=== PATIENT | female | born 1955 | race Caucasian/White ===

== ENCOUNTER 2024-12-14 07:35 | Inpatient (IN) | payer OTHER, MEDICAID ==
[~2024-12-14] VITALS: Ht 167.6 cm; Wt 96.5 kg
--- NOTE | 2024-12-14 08:24 | ED.PDOC ---
SOB-HPI HPI Comments 69 y/o F, presents to the ED for CC of shortness of breath. Patient states, he has been experiencing shortness of breath [id number]. Upon arrival to Ed, patient's SPO2 91% on room air. Patient denies chest pain, fever, cough, nasal congestion, or sore throat. 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 Family History Family History: Unknown Social History Smoker: Non-Smoker Alcohol: Denies ETOH Use Drugs: Denies Drug Use Lives In: Home Constitutional: denies: chills, diaphoresis, fatigue, fever, malaise, sweats, weakness, others EENTM: denies: blurred vision, double vision, ear bleeding, ear discharge, ear drainage, ear pain, ear ringing, eye pain, eye redness, hearing loss, mouth pain, mouth swelling, nasal discharge, nose bleeding, nose congestion, nose pain, photophobia, tearing, throat pain, throat swelling, voice changes, others Respiratory: reports: shortness of breath; denies: cough, hemoptysis, ortho pnea, SOB at rest, SOB with excertion, stridor, wheezing, others Cardiovascular: denies: chest pain, dizzy spells, diaphoresis, Dyspnea on exertion, edema, irregular heart beat, left arm pain, lightheadedness, palpitations, PND, syncope, others Gastrointestinal: denies: abdomen distended, abdominal pain, blood streaked bowels, constipated, diarrhea, dysphagia, difficulty swallowing, hematemesis, melena, nausea, poor appetite, poor fluid intake, rectal bleeding, rectal pain, vomiting, others Genitourinary: denies: abnormal vagina bleeding, burning, dyspareunia, dysuria, flank pain, frequency, hematuria, incontinence, pain, , vagina discharge, urgency, others Neurological: denies: dizziness, fainting, headache, left sided numbness, left sided weakness, numbness, paresthesia, pre-existing deficit, right sided numbness, right sided weakness, seizure, speech problems, tingling, tremors, weakness, others Musculoskeletal: denies: back pain, gout, joint pain, joint swelling, muscle pain, muscle stiffness, neck pain, others Integumetry: denies: bruises, change in color, change in hair/nails, dryness, laceration, lesions, lumps, rash, wounds, others Allergic/Immunocompromised: denies: Difficulty Healing, Frequent Infections, Hives, Itching, others Hematologic/Lymphatic: denies: anemia, blood clots, easy bleeding, easy bruising, swollen glands, others Endocrine: denies: excessive hunger, excessive sweating, excessive thirst, excessive urination, flushing, intolerance to cold, intolerance to heat, unexplained weight gain, unexplained weight loss, others Psychiatric: denies: anxiety, bipolar disorder, depression, hopeless, panic disorder, schizophrenia, sleepless, suicidal, others All Other Systems: Reviewed and Negative Physical Exam General Appearance: No Apparent Distress, Normal HEENT: Normal ENT Inspection, Pharynx Normal Neck: Full Range of Motion, Non-Tender, Normal, Normal Inspection Respiratory: Chest Non-Tender, Lungs Clear, No Accessory Muscle Use, No Respiratory Distress, Normal Breath Sounds Cardiovascular: No Edema, No Murmur, No Gallop, Normal Peripheral Pulses, Regular Rate/Rhythm Breast Exam: Deferred Gastrointestinal: No Organomegaly, Non Tender, No Pulsatile Mass, Normal Bowel Sounds, Soft Genitalia: Deferred Pelvic: Deferred Rectal: Deferred Extremities: No calf tenderness, Normal capillary refill, Normal inspection, Normal range of motion, Non-tender, No pedal edema Musculoskeletal : Apperance: Normal Neurologic: Alert, No Motor Deficits, Normal Affect, Normal Mood, No Sensory Deficits Cerebellar Function: Normal Reflexes: Normal Skin: Dry, Normal Color, Warm Lymphatic: NOT DONE EKG EKG : Pulse Rate (adult): 73 [place]: Normal Cardiac Rhythm: NSR Block: None Hypertrophy: None ST: Normal Was a procedure done? Was a procedure done?: No Differential Dx Differential Diagnosis: Asthma, Bronchitis, Pneumonia, Sinusitis, Pharyngitis, URI X-Ray, Labs, Meds, VS Vital Signs Date Time Temp Pulse Resp B/P (MAP) Pulse Ox O2 Delivery O2 Flow Rate FiO2 12/14/24 14:00 69 14 116/70 (85) 94 12/14/24 13:00 84 13 113/64 (80) 92 12/14/24 12:00 70 13 121/59 (79) 92 12/14/24 11:16 71 20 124/65 (84) 93 12/14/24 10:00 70 20 130/72 (91) 95 12/14/24 09:00 69 19 140/64 (89) 93 12/14/24 08:54 73 12/14/24 08:20 98.0 73 15 144/79 (100) 96 98.0 12/14/24 08:20 Room Air* 0 21 12/14/24 08:12 98.3 80 20 120/84 (96) 91 98.3 12/14/24 08:11 73 Lab Test 12/14/24 11:32 12/14/24 09:30 12/14/24 08:31 Range/Units Troponin I High Sensitivity 4 4 4 </=34 ng/L White Blood Count 9.5 4.4-10.8 10^3/uL Red Blood Count 4.93 4.0-5.20 10^6/uL Hemoglobin 15.2 12.2-16.2 g/dL Hematocrit 44.8 36.0-46.0 % Mean Corpuscular Volume 91.0 80.0-100.0 fL Mean Corpuscular Hemoglobin 30.8 28.0-32.0 pg Mean Corpuscular Hemoglobin Concent 33.8 32.0-36.0 g/dL Red Cell Distribution Width 13.9 11.8-14.3 % Platelet Count 188 140-450 10^3/uL Mean Platelet Volume 8.9 6.9-10.8 fL Neutrophils (%) (Auto) 37.0-80.0 % Lymphocytes (%) (Auto) 10.0-50.0 % Monocytes (%) (Auto) 0.0-12.0 % Basophils (%) (Auto) 0.0-2.0 % Neutrophils # (Auto) 1.6-8.6 10 ^3/uL Lymphocytes # (Auto) 0.4-5.4 10 ^3/uL Monocytes # (Auto) 0-1.3 10 ^3/uL Differential Total Cells Counted 100.0 100 Neutrophils % (Manual) 46 37.0-80.0 Band Neutrophils % (Manual) 1 Lymphocytes % (Manual) 41 10.0-50.0 Monocytes % (Manual) 8 0-12 Eosinophils % (Manual) 4 0-7 Basophils % (Manual) 0 0.0-2.0 Metamyelocytes % (manual) 0 Myelocytes % (Manual) 0 Promyelocytes % (Manual) 0 Blast Cells % (Manual) 0 Reactive Lymphocytes 0 Platelet Estimate Adequate Red Blood Cell Morphology Normal D-Dimer, Quantitative 0.44 0.0-0.49 mg/L FEU Sodium Level 139 136-145 mmol/L Potassium Level 4.2 3.5-5.1 mmol/L Chloride Level 107 98-107 mmol/L Carbon Dioxide Level 23 20-31 mmol/L Anion Gap 9 5-15 Blood Urea Nitrogen 22 9-23 mg/dL Creatinine 0.75 0.550-1.02 mg/dL Glomerular Filtration Rate Calc 86 >90 mL/min BUN/Creatinine Ratio 29.3 H 10.0-20.0 Serum Glucose 112 H 74-106 mg/dL Calcium Level 9.8 8.7-10.4 mg/dL Total Bilirubin 0.4 0.2-1.0 mg/dL Aspartate Amino Transferase (AST) 55 H 13-40 U/L Alanine Aminotransferase (ALT) 63 H 7-40 U/L Alkaline Phosphatase 87 46-116 U/L B-Type Natriuretic Peptide 75.51 0-100 pg/mL Total Protein 6.9 5.7-8.2 g/dL Albumin 4.3 3.2-4.8 g/dL [place] [id number] Ph: [phone] DIAGNOSTIC IMAGING Diagnostic Imaging Report : [id number] Signed PATIENT: NASIM YORK ACCT: [id number] UNIT: [id number] : 1955 LOC: ER ROOM / BED: / AGE / SEX: 69 / F ADM STATUS: REG ER SERVICE 3 ORDERING PHYSICIAN: DARCI SANCHEZ MD PROCEDURE(s): CXRP - CHEST PORTABLE REASON: sob ORDER NUMBER(s): [id number], ACCESSION NUMBER(s): [id number] EXAM: XY CHEST PORTABLE Indication: sob Technique: Single frontal view of the chest was obtained Comparison: None FINDINGS: Lines and Tubes: None Lungs: A 3.3 cm round opacity in the lung. Pleura: No effusion. No pneumothorax. Cardiomediastinal contours: Mild cardiomegaly. Bones: No acute osseous abnormality. IMPRESSION: A 3.3 cm round opacity in the lung. Recommend further evaluation with CT chest. ATED BY: GWENDOLYN MELTON MD DICTATED DATE/TIME: 12/14/24914 SIGNED BY: GWENDOLYN MELTON MD SIGNED DATE/TIME: 12/14/24914 CC: X-Ray, Labs, Meds, VS Comment This 69-year-old female presents secondary to several week history of shortness of breath. She states she has been trying to follow up with her PCP but has been unable to. As such, she presented here. History showed a lung lesion. CT showed likely cancer with metastases. Upon further questioning, the patient endorses having a previous CT scan that she had a lung lesion. She became concerned as she was unable to get follow up care. Secondary to the patient's worsening dyspnea, metastatic cancer, and inability to obtain appropriate care, admit the patient for further workup management of her metastatic lung cancer. Time of 1ST Reevaluation: 09:00 Reevaluation 1ST: Unchanged Patient Education/Counseling: Diagnosis, Treatment Family Education/Counseling: No Family Present Departure 1 Departure Time of Disposition: 14:20 Impression: Primary Impression: Dyspnea Additional Impressions: Lung cancer Metastatic disease Disposition: ADMITTED INPATIENT Admit to: Med Surg Condition: Serious Critical Care Note Critical Care Time?: No Stability Stability form required: No Heart Score Heart Score: Heart Score Response (Comments) Value History N/A 0 EKG N/A 0 Age N/A 0 Risk Factors N/A 0 Troponin N/A 0 Total 0 I personally scribed for DARCI SANCHEZ MD ([email or web address]) on 12/14/24 at 08:24. Electronically submitted by Maria C Guerrero ([email or web address]). I personally scribed for DARCI SANCHEZ MD ([email or web address]) on 12/14/24 at 08:28. Electronically submitted by Maria C Guerrero ([email or web address]). I personally scribed for DARCI SANCHEZ MD ([facility] on 12/14/24 at 08:53. Electronically submitted by Maria C Guerrero ([email or web address]). I personally scribed for DARCI SANCHEZ MD ([facility] on 12/14/24 at 08:54. Electronically submitted by Maria C Guerrero ([email or web address]). I personally scribed for DARCI SANCHEZ MD ([email or web address]) on 12/14/24 at 08:55. Electronically submitted by Maria C Guerrero ([email or web address]). I personally scribed for DARCI SANCHEZ MD ([email or web address]) on 12/14/24 at 09:51. Electronically submitted by Maria C Guerrero ([email or web address]). DARCI SANCHEZ MD Dec 14, 2024 08:24
[2024-12-14 09:02] LABS: Hematocrit 44.8 % (36.0-46.0); Hemoglobin 15.2 g/dL (12.2-16.2); Mean Corpuscular Hemoglobin 30.8 pg (28.0-32.0); Mean Corpuscular Hgb Conc. 33.8 g/dL (32.0-36.0); Platelet Count (auto) 188 10^3/uL (140-450); Red Blood Cells 4.93 10^6/uL (4.0-5.20); Red Cell Distribution Width 13.9 % (11.8-14.3); White Blood Cell 9.5 10^3/uL (4.4-10.8)
[2024-12-14 09:04] LABS: Basophils % (manual) 0 (0.0-2.0); Blast Cells 0; Metamyelocytes % 0; Myelocytes % 0; Promyelocytes % 0; Reactive Lymphocytes 0
--- NOTE | 2024-12-14 09:17 | DVH ---
EXAM: XY CHEST PORTABLE Indication: sob Technique: Single frontal view of the chest was obtained Comparison: None FINDINGS: Lines and Tubes: None Lungs: A 3.3 cm round opacity in the lung. Pleura: No effusion. No pneumothorax. Cardiomediastinal contours: Mild cardiomegaly. Bones: No acute osseous abnormality. IMPRESSION: A 3.3 cm round opacity in the lung. Recommend further evaluation with CT chest.
[2024-12-14 09:21] LABS: Band Neutrophils % (manual) 1; Eosinophils % (manual) 4 (0-7); Lymphocytes % (manual) 41 (10.0-50.0); Monocytes % (manual) 8 (0-12); Platelet Estimate Adequate; RBC Morphology Normal
[2024-12-14 09:23] LABS: Albumin 4.3 g/dL (3.2-4.8); Alkaline Phosphatase 87 U/L (46-116); Anion Gap 9 (5-15); BUN/Creatinine Ratio 29.3 (10.0-20.0); Blood Urea Nitrogen 22 mg/dL (9-23); Calcium 9.8 mg/dL (8.7-10.4); Carbon Dioxide 23 mmol/L (20-31); Chloride 107 mmol/L (98-107); Potassium 4.2 mmol/L (3.5-5.1); Sodium 139 mmol/L (136-145); Total Protein 6.9 g/dL (5.7-8.2)
[2024-12-14 09:24] LABS: Bilirubin, Total 0.4 mg/dL (0.2-1.0)
[2024-12-14 09:33] LABS: Alanine Aminotransferase 63 U/L (7-40); Aspartate Aminotransferase 55 U/L (13-40); Glucose 112 mg/dL (74-106)
[2024-12-14] MEDS: IOHEXOL 300 MG/ML 100ML BOTTLE IJ ONE (10:56)
--- NOTE | 2024-12-14 11:48 | DVH ---
Procedure: CT CHEST WITH CONTRAST Reason for study/Clinical History: lung mass Comparison Study: Chest radiograph performed earlier same date. Exam Date: 12/14/2024 10:54 AM Radiation Dose Information: CT Dose: CTDI volume is 26.04 mGy. Dose-length product is 980.02 mGy*cm Contrast: Type of contrast: Omnipaque 300 Contrast inject: 80 mL Contrast wasted:0 TECHNIQUE: CT scan of the chest was performed with intravenous contrast from the base of the neck to the upper abdomen. Coronal and sagittal reformatted images are submitted. FINDINGS: Lower Neck: Visualized portions of the thyroid gland are unremarkable. Aorta and Vasculature:Ectatic thoracic aorta measuring 3.9 cm. No aortic dissection. Normal caliber main pulmonary artery. Pulmonary arteries otherwise not evaluated due to suboptimal enhancement seco ndary to the phase of imaging. Lymph Nodes: No enlarged intrathoracic lymph nodes. Mediastinum: Heart size is normal. Coronary artery calcifications. There is no pericardial effusion. The esophagus is unremarkable. Lungs: There is a lobular mass in the right upper lobe measuring 2.6 x 2.5 x 2.6 cm. There is a 4 x 3 mm solid nodule in the posterior left lower lobe (series 3, image 26). There is a 5 mm solid nodule in the posterior left lower lobe (series 3, image 42). Moderate centrilobular emphysema with bulla n oted. Central airways: Patent. Musculoskeletal: No acute osseous abnormality. Multilevel thoracic spondylosis. Upper abdomen: Limited portions of the upper abdomen are unremarkable. IMPRESSION: 1. 2.6 cm right upper lobe pulmonary nodule highly suspicious for primary pulmonary malignancy. Left lower lobe pulmonary nodule suspicious for metastatic nodules. PET-CT recommended for further evaluat ion. 2. No adenopathy. 3. Emphysema. 4. Coronary artery calcifications. All CT scans at this medical facility are performed using dose modulation techniques as appropriate t o a performed exam including the following: Automated exposure control was utilized; adjustment of th e MA and/or KV according to patient size; and use of iterative reconstruction technique.
--- NOTE | 2024-12-14 14:52 | DVHHP2 ---
Admitting Diagnosis: Shortness of breaths History of Present Illness 69 y/o F, presents to the ED for CC of shortness of breath. Patient states, he has been experiencing shortness of breath [id number]. Upon arrival to Ed, patient's SPO2 91% on room air. Patient denies chest pain, fever, cough, nasal congestion, or sore throat. 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 Family History Family History: Unknown Social History Smoker: Non-Smoker Alcohol: Denies ETOH Use Drugs: Denies Drug Use Lives In: Home Review of Systems Constitutional: denies: chills, diaphoresis, fatigue, fever, malaise, sweats, weakness, others EENTM: denies: blurred vision, double vision, ear bleeding, ear discharge, ear drainage, ear pain, ear ringing, eye pain, eye redness, hearing loss, mouth pain, mouth swelling, nasal discharge, nose bleeding, nose congestion, nose pain, photophobia, tearing, throat pain, throat swelling, voice changes, others Respiratory: reports: shortness of breath; denies: cough, hemoptysis, orthopnea, SOB at rest, SOB with excertion, stridor, wheezing, others Cardiovascular: denies: chest pain, dizzy spells, diaphoresis, Dyspnea on exertion, edema, irregular heart beat, left arm pain, lightheadedness, palpitations, PND, syncope, others Gastrointestinal: denies: abdomen distended, abdominal pain, blood streaked bowels, constipated, diarrhea, dysphagia, difficulty swallowing, hematemesis, melena, nausea, poor appetite, poor fluid intake, rectal bleeding, rectal pain, vomiting, others Genitourinary: denies: abnormal vagina bleeding, burning, dyspareunia, dysuria, flank pain, frequency, hematuria, incontinence, pain, , vagina discharge, urgency, others Neurological: denies: dizziness, fainting, headache, left sided numbness, left sided weakness, numbness, paresthesia, pre-existing deficit, right sided numbness, right sided weakness, seizure, speech problems, tingling, tremors, weakness, others Musculoskeletal: denies: back pain, gout, joint pain, joint swelling, muscle pain, muscle stiffness, neck pain, others Integumetry: denies: bruises, change in color, change in hair/nails, dryness, laceration, lesions, lumps, rash, wounds, others Allergic/Immunocompromised: denies: Difficulty Healing, Frequent Infections, Hives, Itching, others Hematologic/Lymphatic: denies: anemia, blood clots, easy bleeding, easy bruising, swollen glands, others Endocrine: denies: excessive hunger, excessive sweating, excessive thirst, excessive urination, flushing, intolerance to cold, intolerance to heat, une xplained weight gain, unexplained weight loss, others Psychiatric: denies: anxiety, bipolar disorder, depression, hopeless, panic disorder, schizophrenia, sleepless, suicidal, others All Other Systems: Reviewed and Negative Allergies: Coded Allergies: Sulfanilamide (Verified Allergy, Unknown, 02/27/16) Vital Signs Vital Signs Date Time Temp Pulse Resp B/P (MAP) Pulse Ox O2 Delivery O2 Flow Rate FiO2 12/14/24 14:00 69 14 116/70 (85) 94 12/14/24 08:20 98.0 98.0 12/14/24 08:20 Room Air* 0 21 Physical Exam Generally-69 years old woman, well nourished well developed. No apparent distress HEENT-atraumatic normocephalic Heart-regular rate and rhythm Lungs decreased breath sounds Abdomen soft nontender nondistended Musculoskeletal-no edema cyanosis Neuro-AO x3, no focal deficits Results Labs Test 12/14/24 11:32 12/14/24 08:31 Range/Units Troponin I High Sensitivity 4 </=34 ng/L White Blood Count 9.5 4.4-10.8 10^3/uL Red Blood Count 4.93 4.0-5.20 10^6/uL Hemoglobin 15.2 12.2-16.2 g/dL Hematocrit 44.8 36.0-46.0 % Mean Corpuscular Volume 91.0 80.0-100.0 fL Mean Corpuscular Hemoglobin 30.8 28.0-32.0 pg Mean Corpuscular Hemoglobin Concent 33.8 32.0-36.0 g/dL Red Cell Distribution Width 13.9 11.8-14.3 % Platelet Count 188 140-450 10^3/uL Mean Platelet Volume 8.9 6.9-10.8 fL Neutrophils (%) (Auto) 37.0-80.0 % Lymphocytes (%) (Auto) 10.0-50.0 % Monocytes (%) (Auto) 0.0-12.0 % Basophils (%) (Auto) 0.0-2.0 % Neutrophils # (Auto) 1.6-8.6 10 ^3/uL Lymphocytes # (Auto) 0.4-5.4 10 ^3/uL Monocytes # (Auto) 0-1.3 10 ^3/uL Differential Total Cells Counted 100.0 100 Neutrophils % (Manual) 46 37.0-80.0 Band Neutrophils % (Manual) 1 Lymphocytes % (Manual) 41 10.0-50.0 Monocytes % (Manual) 8 0-12 Eosinophils % (Manual) 4 0-7 Basophils % (Manual) 0 0.0-2.0 Metamyelocytes % (manual) 0 Myelocytes % (Manual) 0 Promyelocytes % (Manual) 0 Blast Cells % (Manual) 0 Reactive Lymphocytes 0 Platelet Estimate Adequate Red Blood Cell Morphology Normal D-Dimer, Quantitative 0.44 0.0-0.49 mg/L FEU Sodium Level 139 136-145 mmol/L Potassium Level 4.2 3.5-5.1 mmol/L Chloride Level 107 98-107 mmol/L Carbon Dioxide Level 23 20-31 mmol/L Anion Gap 9 5-15 Blood Urea Nitrogen 22 9-23 mg/dL Creatinine 0.75 0.550-1.02 mg/dL Glomerular Filtration Rate Calc 86 >90 mL/min BUN/Creatinine Ratio 29.3 H 10.0-20.0 Serum Glucose 112 H 74-106 mg/dL Calcium Level 9.8 8.7-10.4 mg/dL Total Bilirubin 0.4 0.2-1.0 mg/dL Aspartate Amino Transferase (AST) 55 H 13-40 U/L Alanine Aminotransferase (ALT) 63 H 7-40 U/L Alkaline Phosphatase 87 46-116 U/L B-Type Natriuretic Peptide 75.51 0-100 pg/mL Total Protein 6.9 5.7-8.2 g/dL Albumin 4.3 3.2-4.8 g/dL Primary Diagnosis Shortness of breaths due to primary lung cancer with the mets Plan CT chest shows Lovenox CT-guided IR biopsy order NPO midnight IV fluids in a.m. INR within normal limits SCD for DVT prophylaxis Albuterol and ipratropium q.6 hours standing for breathing treatment Full code PPI for GI prophylaxis Plan discussed with: Patient Date of Service: Dec 14, 2024 Billing Provider: CHANO MCDONALD MD Common Visit Codes: 78644-LSSVVMV INP/OBS CARE (MOD) CHANO MCDONALD MD Dec 14, 2024 14:51
[2024-12-14] MEDS ORDERED: ONDANSETRON HCL 4 MG/2 ML VIAL IV PRN (15:30)
[2024-12-14] MEDS ORDERED: DOCUSATE SOD 100 MG CAP PO PRN (15:30)
[2024-12-14] MEDS ORDERED: hydrALAZINE HCL 20 MG/ML VL IV PRN (15:30)
[2024-12-14 16:09] VITALS: BP 127/72; PULSE 83; RESP 17; O2SAT 93
[2024-12-14 18:55] VITALS: PULSE 82; RESP 16; O2SAT 95
[2024-12-14] MEDS: ALBUTEROL SULF 2.5 MG/0.5ML(0.5%) NEB SOLN NEB SCH (18:55)
[2024-12-14] MEDS: IPRATROPIUM BROM 0.5 MG/2.5ML INH SOL NEB SCH (18:55)
[2024-12-14 19:03] VITALS: PULSE 85; RESP 16; O2SAT 100
--- NOTE | 2024-12-14 19:13 | ECG ---
[facility] Test Date: 2024-12-14 Test Time: 08:11:51 Pat Name: NASIM YORK Department: ER Room: 0221 A Gender: F [employer]: KATHLEEN : 1955 Requested By: DARCI SANCHEZ Order Number: [id number] Reading MD: Neftaly Benitez Measurements Intervals [place] Rate: 73 P: 48 CO: 149 QRS: -11 QRSD: 87 T: 41 QT: 395 QTc: 436 Interpretive Statements Sinus rhythm Abnormal R-wave progression, early transition Electronically Signed On 12-17-2024 20:21:48 PDT by Neftaly Benitez Please click the below link to view image of tracing.
[2024-12-14 20:00] VITALS: PULSE 74; RESP 17; O2SAT 93
[2024-12-14 21:23] VITALS: BP 123/55; PULSE 74; RESP 18; TEMP 97.7; O2SAT 90
[2024-12-14] MEDS: ACETAMINOPHEN 325 MG TAB PO PRN (22:01)
[2024-12-14] MEDS: SODIUM CHLOR 0.9% PF (SALINE LOCK) 10ML VIAL/SYR IV SCH (22:15)
[2024-12-15] VITALS (13 sets, daily range): BP systolic 122–131; BP diastolic 53–83; PULSE 66–77; RESP 16–19; TEMP 97.6–98.4; O2SAT 90–100
[2024-12-15] MEDS: LACTATED RINGER'S 1,000 ML IV ONE (05:54)
[2024-12-15 08:09] LABS: Basophils # (auto) 0 10 ^3/uL (0-0.2); Basophils % (auto) 0.4 % (0.0-2.0); Eosinophils # (auto) 0.3 10 ^3/uL (0-0.8); Eosinophils % (auto) 4.4 % (0.0-7.0); Hemoglobin 14.2 g/dL (12.2-16.2); Lymphocytes # (auto) 2.9 10 ^3/uL (0.4-5.4); Lymphocytes % (auto) 40.8 % (10.0-50.0); Mean Corpuscular Hemoglobin 30.5 pg (28.0-32.0); Mean Corpuscular Hgb Conc. 33.9 g/dL (32.0-36.0); Mean Corpuscular Volume 89.8 fL (80.0-100.0); Monocytes # (auto) 0.6 10 ^3/uL (0-1.3); Monocytes % (auto) 7.9 % (0.0-12.0); Neutrophils # (auto) 3.3 10 ^3/uL (1.6-8.6); Neutrophils % (auto) 46.5 % (37.0-80.0); Platelet Count (auto) 167 10^3/uL (140-450); Red Blood Cells 4.67 10^6/uL (4.0-5.20); Red Cell Distribution Width 13.9 % (11.8-14.3); White Blood Cell 7.2 10^3/uL (4.4-10.8)
[2024-12-15 08:26] LABS: Alkaline Phosphatase 74 U/L (46-116); Anion Gap 10 (5-15); BUN/Creatinine Ratio 21.9 (10.0-20.0); Blood Urea Nitrogen 16 mg/dL (9-23); Calcium 9.5 mg/dL (8.7-10.4); Carbon Dioxide 26 mmol/L (20-31); Chloride 105 mmol/L (98-107); Glucose 90 mg/dL (74-106); INR 1.08 (0.9-1.15); Partial Thromboplastin Time 24.6 SEC (24.5-34.5); Potassium 4.1 mmol/L (3.5-5.1); Prothrombin Time 11.4 sec (9.3-11.8); Sodium 141 mmol/L (136-145); Total Protein 6.6 g/dL (5.7-8.2)
[2024-12-15 08:27] LABS: Bilirubin, Total 0.8 mg/dL (0.2-1.0)
[2024-12-15 08:33] LABS: Alanine Aminotransferase 65 U/L (7-40); Aspartate Aminotransferase 59 U/L (13-40)
[2024-12-15] MEDS: fentaNYL CITRATE 100 MCG/2 ML VL IV ONE (09:00)
[2024-12-15] MEDS: MIDAZOLAM HCL 2MG/2ML 2ml VIAL (1mg/ml) IV ONE (09:00)
[2024-12-15] MEDS: LIDOCAINE 2%HCL (LOCAL ANESTH.) INJ 10ml MDV ONE (09:03)
[2024-12-15] MEDS: PANTOPRAZOLE 40 MG/10 ML VIAL INJ IV SCH (11:09)
[2024-12-15] MEDS: HYDROcodone-ACET 5/325MG TAB PO PRN (11:14)
--- NOTE | 2024-12-15 11:30 | DVH ---
PROCEDURE: CT-guided biopsy Procedural Personnel Attending physician(s): Lincoln Sarmiento Fellow physician(s): None Resident physician(s): None Advanced practice provider(s): None Procedure Date (/yyyy): 12/15/2024 Pre-procedure diagnosis: Right lung nodule Post-procedure diagnosis: Same Indication: Histopathologic diagnosis Previous biopsy of same target: No Additional clinical history: None Complications: No immediate complications. IMPRESSION: CT-guided biopsy of right lung nodule. Plan: Specimen(s) sent for evaluation. PROCEDURE SUMMARY: - Percutaneous CT-guided coaxial core needle biopsy of right lung nodule - Additional procedure(s): None PROCEDURE DETAILS: Pre-procedure Reference imaging for biopsy target: CT chest 12/15/24 Consent: Informed consent for the procedure including risks, benefits and alternatives was obtained a nd time-out was performed prior to the procedure. Preparation: The site was prepared and draped using maximal sterile barrier technique including cutan eous antisepsis. Anesthesia/sedation Level of anesthesia/sedation: Moderate sedation (conscious sedation) Anesthesia/sedation administered by: Independent trained observer under attending supervision with co ntinuous monitoring of the patient s level of consciousness and physiologic status Total intra-service sedation time (minutes): 45 Imaging prior to biopsy The patient was positioned supine . Initial imaging was performed. Biopsy target: - Organ or target location: Lung - Laterality: Right - Maximal diameter (cm): 2.3 Other findings: None Biopsy Local anesthesia was administered. Under CT guidance, the biopsy needle was advanced to the target an d biopsy was performed. Coaxial needle: 19 gauge Core needle biopsy device: [employer] Core needle size: 20 gauge Number of core specimens: 3 Fine needle aspiration device: NA Fine needle size: Not applicable Number of FNA specimens: Not applicable On-site assessment of biopsy adequacy: No Additional sampling recommendations: None Preliminary assessment of sample adequacy: Not applicable Needle removal The biopsy needle was removed and a sterile dressing was applied. Tract embolization: Blood patch Imaging following biopsy Immediate post-biopsy imaging was performed using noncontrast CT . Post-biopsy imaging findings: Small volume alveolar hemorrhage and right chest wall hematoma, nonenla rging. No pneumothorax Contrast Contrast agent: None Contrast volume (mL): [address] dose length product (mGy-cm ): 2565.74 Not Used Additional Details Additional description of procedure: None Registry event: V /3 /g Device used: None Equipment details: None Unique Device Identifiers: Not available Specimens removed: Biopsy samples as detailed above Estimated blood loss (mL): Less than 10 Standardized report: [email or web address] Attestation Signer name: Lincoln Sarmiento I attest that I was present for the entire procedure . I reviewed the stored images and agree with e report as written.
[2024-12-15] MEDS: IPRATROPIUM BROM 0.5 MG/2.5ML INH SOL NEB SCH (11:55)
[2024-12-15] MEDS: ALBUTEROL SULF 2.5 MG/0.5ML(0.5%) NEB SOLN NEB SCH (11:55)
--- NOTE | 2024-12-15 13:09 | DVH ---
CHEST RADIOGRAPH Indication: POST LUNG BIOPSY Technique: Single frontal view of the chest was obtained COMPARISON: XY CHEST PORTABLE on DOS: 12/14/24 FINDINGS: Lines and Tubes: None Lungs: Right upper lobe airspace opacity. Pleura: No effusion. No pneumothorax. Cardiomediastinal contours: Unremarkable Bones: Unremarkable IMPRESSION: No appreciable pneumothorax.
--- NOTE | 2024-12-15 13:14 | DVHPN2 ---
Reviewed: Care Plan, H&P, Labs, Medications, Previous Orders, Radiology Changes from previous H/P or p: No Changes Objective Vitals Vital Signs Date Time Temp Pulse Resp B/P (MAP) Pulse Ox O2 Delivery O2 Flow Rate FiO2 12/15/24 10:00 94 Room Air 0.0 12/15/24 10:00 21 12/15/24 09:00 97.9 68 19 131/65 (87) 97.9 Intake/Output Intake and Output 12/15/24 07:00 Intake Total 600 ml Balance 600 ml Intake Oral 600 ml # Voids 2 Medications Current Medications Medications Dose Ordered Sig/Mirian Route Start Time Stop Time Status Last Admin Dose Admin Hydralazine HCl 5 mg Q6H PRN IV 12/14/24 15:30 Sodium Chloride 10 ml Q8HR IV 12/14/24 22:00 12/15/24 05:55 10 ML Docusate Sodium 100 mg BIDPRN PRN PO 12/14/24 15:30 Acetaminophen 650 mg Q6HP PRN PO 12/14/24 15:30 12/14/24 22:01 650 MG Acetaminophen/ Hydrocodone Bitart 1 tab Q4HP PRN PO 12/14/24 15:30 12/15/24 11:14 1 TAB Ondansetron HCl 4 mg Q4HP PRN IV 12/14/24 15:30 Pantoprazole Sodium 40 mg DAILY IV 12/15/24 10:00 12/15/24 11:09 40 MG Albuterol 2.5 mg Q6H NEB 12/15/24 12:00 Ipratropium [place] 0.5 mg Q6H NEB 12/15/24 12:00 Laboratory Results Laboratory Tests 12/15/24 07:15 Chemistry Test 12/15/24 07:15 Albumin 4.0 g/dL (3.2-4.8) Calcium Level 9.5 mg/dL (8.7-10.4) Total Protein 6.6 g/dL (5.7-8.2) Coagulation Test 12/15/24 07:15 Prothrombin Time 11.4 sec (9.3-11.8) Prothrombin Time INR 1.08 (0.9-1.15) Activated Partial Thromboplast Time 24.6 SEC (24.5-34.5) LFT Test 12/15/24 07:15 Alanine Aminotransferase (ALT) 65 U/L (7-40) H Alkaline Phosphatase 74 U/L (46-116) Aspartate Amino Transferase (AST) 59 U/L (13-40) H Total Bilirubin 0.8 mg/dL (0.2-1.0) Labs and/or images reviewed: Labs reviewed by me, Image(s) reviewed by me Assessment/Plan Assessment/Plan Acute respiratory failure Right upper lobe nodule status post biopsy Hypertension History of hep C History of cholecystectomy Polyps in the urinary bladder, scheduled for surgery by Urology Dr. Capellan who ordered chest x-ray and right lung nodule was found incidentally History of smoking for more than 40 years quit two months back Plan discussed with: Patient Date of Service: Dec 15, 2024 Billing Provider: MARIANNE PACHECO MD Common Visit Codes: [id number] INP/OBS CARE(HIGH) MARIANNE PACHECO MD Dec 15, 2024 13:14
[2024-12-16] VITALS (17 sets, daily range): BP systolic 119–124; BP diastolic 60–70; PULSE 69–98; RESP 15–21; TEMP 97.8–98.8; O2SAT 90–99
[2024-12-16 07:35] LABS: Albumin 3.8 g/dL (3.2-4.8); Alkaline Phosphatase 66 U/L (46-116); BUN/Creatinine Ratio 22.5 (10.0-20.0); Bilirubin, Total 0.6 mg/dL (0.2-1.0); Blood Urea Nitrogen 16 mg/dL (9-23); Calcium 9.3 mg/dL (8.7-10.4); Glucose 90 mg/dL (74-106); Potassium 4.1 mmol/L (3.5-5.1); Sodium 140 mmol/L (136-145); Total Protein 6.2 g/dL (5.7-8.2)
[2024-12-16 07:39] LABS: Alanine Aminotransferase 54 U/L (7-40); Aspartate Aminotransferase 43 U/L (13-40); Chloride 108 mmol/L (98-107)
[2024-12-16 07:45] LABS: Hematocrit 40.6 % (36.0-46.0); Hemoglobin 13.7 g/dL (12.2-16.2); Mean Corpuscular Hemoglobin 30.7 pg (28.0-32.0); Mean Corpuscular Hgb Conc. 33.6 g/dL (32.0-36.0); Mean Corpuscular Volume 91.2 fL (80.0-100.0); Platelet Count (auto) 160 10^3/uL (140-450); Red Blood Cells 4.45 10^6/uL (4.0-5.20); White Blood Cell 6.6 10^3/uL (4.4-10.8)
[2024-12-16 07:48] LABS: Anion Gap 9 (5-15); Basophils % (manual) 0 (0.0-2.0); Blast Cells 0; Carbon Dioxide 23 mmol/L (20-31); Metamyelocytes % 0; Myelocytes % 0; Promyelocytes % 0; Reactive Lymphocytes 0
[2024-12-16 09:05] LABS: Band Neutrophils % (manual) 1; Eosinophils % (manual) 3 (0-7); Lymphocytes % (manual) 24 (10.0-50.0); Monocytes % (manual) 6 (0-12)
[2024-12-16 09:06] LABS: Platelet Estimate Adequate
--- NOTE | 2024-12-16 09:37 | DVHPN2 ---
Reviewed: Care Plan, H&P, Labs, Medications, Previous Orders, Radiology Changes from previous H/P or p: No Changes Objective Vitals Vital Signs Date Time Temp Pulse Resp B/P (MAP) Pulse Ox O2 Delivery O2 Flow Rate FiO2 12/16/24 09:04 98.1 74 16 119/68 (85) 92 98.1 12/16/24 08:00 Room Air* 0 21 Intake/Output Intake and Output 12/16/24 07:00 Intake Total 600 ml Balance 600 ml Intake Oral 600 ml # Voids 6 # Bowel Movements 1 Medications Current Medications Medications Dose Ordered Sig/Mirian Route Start Time Stop Time Status Last Admin Dose Admin Hydralazine HCl 5 mg Q6H PRN IV 12/14/24 15:30 Sodium Chloride 10 ml Q8HR IV 12/14/24 22:00 12/16/24 06:19 10 ML Docusate Sodium 100 mg BIDPRN PRN PO 12/14/24 15:30 Acetaminophen 650 mg Q6HP PRN PO 12/14/24 15:30 12/16/24 09:10 650 MG Acetaminophen/ Hydrocodone Bitart 1 tab Q4HP PRN PO 12/14/24 15:30 12/15/24 19:39 1 TAB Ondansetron HCl 4 mg Q4HP PRN IV 12/14/24 15:30 Pantoprazole Sodium 40 mg DAILY IV 12/15/24 10:00 12/16/24 09:10 40 MG Albuterol 2.5 mg Q6H NEB 12/15/24 12:00 12/16/24 07:15 2.5 MG Ipratropium [place] 0.5 mg Q6H NEB 12/15/24 12:00 12/16/24 07:15 0.5 MG Laboratory Results Laboratory Tests 12/16/24 06:07 Chemistry Test 12/16/24 06:07 Albumin 3.8 g/dL (3.2-4.8) Calcium Level 9.3 mg/dL (8.7-10.4) Total Protein 6.2 g/dL (5.7-8.2) LFT Test 12/16/24 06:07 Alanine Aminotransferase (ALT) 54 U/L (7-40) H Alkaline Phosphatase 66 U/L (46-116) Aspartate Amino Transferase (AST) 43 U/L (13-40) H Total Bilirubin 0.6 mg/dL (0.2-1.0) Labs and/or images reviewed: Labs reviewed by me, Image(s) reviewed by me Assessment/Plan Assessment/Plan Acute respiratory failure Right upper lobe nodule status post biopsy radiologist 12-15-24, biopsy report pending Hypertension History of hep C History of cholecystectomy Polyps in the urinary bladder, scheduled for surgery by Urology Dr. Capellan who ordered chest x-ray and right lung nodule was found incidentally History of smoking for more than 40 years quit two months back Plan discussed with: Patient My Orders Orders - MARIANNE PACHECO MD Procedure Category Date Status Time *Consult CONS 12/15/24 Transmitted / 13:23 Date of Service: Dec 16, 2024 Billing Provider: MARIANNE PACHECO MD Common Visit Codes: [id number] INP/OBS CARE(HIGH) MARIANNE PACHECO MD Dec 16, 2024 09:37
--- NOTE | 2024-12-16 12:17 | DVHINCON2 ---
Date of service: Dec 15, 2024 Referring Physician micky rojas Reason for Consultation copd History of Present Illness HPI pt is a 69 yo female, active smoker for many years, h/o copd /emphysema, presented with right lung nodule for a biopsy. Pt reports worsening shortness of breath and cough over last 2-3 months. Pt underwent right lung bx, c/o pain afterwards. admitted for further management Past Medical History Cardiac: No pertinent Hx Pulmonary: COPD Central Nervous System: No pertinent Hx GI: No pertinent Hx Hemotology/Oncology: No pertinent Hx Hepatobiliary: No pertinent Hx Psychiatric: No pertinent Hx Musculoskeletal: No pertinent Hx Rheumotologic: No pertinent Hx Infectious Disease: No peritnent Hx ENT: No pertinent Hx Renal/: No pertinent Hx Endocrine: No pertinent Hx Dermatology: No pertinent Hx Past Surgical History: No pertinent Hx Family History: No pertinent Hx Patient Family History: Angina G8 MOTHER Colon cancer G8 FATHER Diabetes mellitus G8 FATHER Smoker: Positive Review of Systems Constitutional: No symptom reported Eyes: No symptom reported Pulmonary/Respiratory: Dyspnea, Cough Cardiovascular: No symptom reported Gastrointestinal: No symptom reported Genitourinary: No symptom reported Musculoskeletal: No symptom reported Skin: No symptom reported Psychiatric: No symptom reported Endocrine: No symptom reported Hemotologic/Lymphatic: No symptom reported H&P Exam Vital Signs Vital Signs Date Time Temp Pulse Resp B/P (MAP) Pulse Ox O2 Delivery O2 Flow Rate FiO2 12/16/24 12:10 77 18 94 12/16/24 10:00 Room Air 12/16/24 10:00 0 21 12/16/24 09:04 98.1 119/68 (85) 98.1 General Appeara: Well developed, Well nourished Head Exam: Normal inspection Eye Exam: bilateral eye PERRL, bilateral eye EOMI Ear Exam: bilateral ear Auricle normal, bilateral ear Canal normal Nasal Exam: Normal inspection Mouth: Normal Inspection Pulmonary/Respiratory: Normal inspection, Normal breath sounds Cardiovascular/Chest: Normal inspection Peripheral Pulses: 4+ carotid (R), 4+ carotid (L) Abdominal Exam: Normal bowel sounds, Soft Rectal Exam: Deferred Labs/Xrays Labs Test 12/16/24 06:07 12/15/24 07:15 12/14/24 11:32 12/14/24 08:31 Range/Units White Blood Count 6.6 4.4-10.8 10^3/uL Red Blood Count 4.45 4.0-5.20 10^6/uL Hemoglobin 13.7 12.2-16.2 g/dL Hematocrit 40.6 36.0-46.0 % Mean Corpuscular Volume 91.2 80.0-100.0 fL Mean Corpuscular Hemoglobin 30.7 28.0-32.0 pg Mean Corpuscular Hemoglobin Concent 33.6 32.0-36.0 g/dL Red Cell Distribution Width 14.0 11.8-14.3 % Platelet Count 160 140-450 10^3/uL Mean Platelet Volume 9.0 6.9-10.8 fL Neutrophils (%) (Auto) 37.0-80.0 % Lymphocytes (%) (Auto) 10.0-50.0 % Monocytes (%) (Auto) 0.0-12.0 % Basophils (%) (Auto) 0.0-2.0 % Neutrophils # (Auto) 1.6-8.6 10 ^3/uL Lymphocytes # (Auto) 0.4-5.4 10 ^3/uL Monocytes # (Auto) 0-1.3 10 ^3/uL Differential Total Cells Counted 100.0 100 Neutrophils % (Manual) 66 37.0-80.0 Band Neutrophils % (Manual) 1 Lymphocytes % (Manual) 24 10.0-50.0 Monocytes % (Manual) 6 0-12 Eosinophils % (Manual) 3 0-7 Basophils % (Manual) 0 0.0-2.0 Metamyelocytes % (manual) 0 Myelocytes % (Manual) 0 Promyelocytes % (Manual) 0 Blast Cells % (Manual) 0 Reactive Lymphocytes 0 Platelet Estimate Adequate Sodium Level 140 136-145 mmol/L Potassium Level 4.1 3.5-5.1 mmol/L Chloride Level 108 H 98-107 mmol/L Carbon Dioxide Level 23 20-31 mmol/L Anion Gap 9 5-15 Blood Urea Nitrogen 16 9-23 mg/dL Creatinine 0.71 0.550-1.02 mg/dL Glomerular Filtration Rate Calc 91 >90 mL/min BUN/Creatinine Ratio 22.5 H 10.0-20.0 Serum Glucose 90 74-106 mg/dL Calcium Level 9.3 8.7-10.4 mg/dL Total Bilirubin 0.6 0.2-1.0 mg/dL Aspartate Amino Transferase (AST) 43 H 13-40 U/L Alanine Aminotransferase (ALT) 54 H 7-40 U/L Alkaline Phosphatase 66 46-116 U/L Total Protein 6.2 5.7-8.2 g/dL Albumin 3.8 3.2-4.8 g/dL Eosinophils (%) (Auto) 4.4 0.0-7.0 % Eosinophils # (Auto) 0.3 0-0.8 10 ^3/uL Basophils # (Auto) 0 0-0.2 10 ^3/uL Nucleated Red Blood Cells 0.0 % Prothrombin Time 11.4 9.3-11.8 sec Prothrombin Time INR 1.08 0.9-1.15 Activated Partial Thromboplast Time 24.6 24.5-34.5 SEC Troponin I High Sensitivity 4 </=34 ng/L Red Blood Cell Morphology Normal D-Dimer, Quantitative 0.44 0.0-0.49 mg/L FEU B-Type Natriuretic Peptide 75.51 0-100 pg/mL Assessment/Plan Plan acute copd emphysema right lung nodule dyspnea management plan 02 as needed start solumedrol transition to prednisone with taper prior to dc alb/atrovent bronchodilators pain control inc spirometry gi and dvt proph full code Plan discussed with: Patient AJDA QUIÑONEZ MD Dec 16, 2024 12:17
--- NOTE | 2024-12-16 12:19 | DVHPN2 ---
Progress Note - Dictate Date Seen: Dec 16, 2024 Has the PT tested + for MRSA If YES, has PT been informed?: No Medical Necessity Reason Pt with a Central, PICC or Fol: No vital signs Vital Sign Date Time Temp Pulse Resp B/P (MAP) Pulse Ox O2 Delivery O2 Flow Rate FiO2 12/16/24 12:10 77 18 94 12/16/24 10:00 Room Air 12/16/24 10:00 0 21 12/16/24 09:04 98.1 119/68 (85) 98.1 Total Intake and Output 12/15/24 12/15/24 12/16/24 15:00 23:00 07:00 Intake Total 200 ml 400 ml Balance 200 ml 400 ml medications Current Medications Medications Dose Ordered Sig/Mirian Route Start Time Stop Time Status Last Admin Dose Admin Hydralazine HCl 5 mg Q6H PRN IV 12/14/24 15:30 Sodium Chloride 10 ml Q8HR IV 12/14/24 22:00 12/16/24 06:19 10 ML Docusate Sodium 100 mg BIDPRN PRN PO 12/14/24 15:30 Acetaminophen 650 mg Q6HP PRN PO 12/14/24 15:30 12/16/24 09:10 650 MG Acetaminophen/ Hydrocodone Bitart 1 tab Q4HP PRN PO 12/14/24 15:30 12/15/24 19:39 1 TAB Ondansetron HCl 4 mg Q4HP PRN IV 12/14/24 15:30 Pantoprazole Sodium 40 mg DAILY IV 12/15/24 10:00 12/16/24 09:10 40 MG Albuterol 2.5 mg Q6H NEB 12/15/24 12:00 12/16/24 12:10 2.5 MG Ipratropium [place] 0.5 mg Q6H NEB 12/15/24 12:00 12/16/24 12:10 0.5 MG laboratory and microbiology Laboratory Tests 12/16/24 06:07 Test 12/16/24 06:07 Range/Units Serum Glucose 90 74-106 mg/dL Assessment/Plan acute copd emphysema right lung nodule s/p lung bx dyspnea management plan 02 as needed steroids alb/atrovent bronchodilators pain control inc spirometry gi and dvt proph full code pt would benefit from out-pt follow up Plan discussed with: Patient JADA QUIÑONEZ MD Dec 16, 2024 12:19
[2024-12-16] MEDS: methylPREDNISolone SOD SUCC 125 MG/2 ML VL IV SCH (15:16)
[2024-12-17] VITALS (17 sets, daily range): BP systolic 110–129; BP diastolic 59–79; PULSE 69–97; RESP 15–20; TEMP 97.6–98.3; O2SAT 93–99
[2024-12-17 07:51] LABS: Basophils # (auto) 0 10 ^3/uL (0-0.2); Basophils % (auto) 0.2 % (0.0-2.0); Eosinophils # (auto) 0 10 ^3/uL (0-0.8); Hematocrit 40.4 % (36.0-46.0); Hemoglobin 13.7 g/dL (12.2-16.2); Lymphocytes # (auto) 0.9 10 ^3/uL (0.4-5.4); Mean Corpuscular Hemoglobin 30.9 pg (28.0-32.0); Mean Corpuscular Hgb Conc. 33.9 g/dL (32.0-36.0); Mean Corpuscular Volume 91.1 fL (80.0-100.0); Monocytes # (auto) 0.4 10 ^3/uL (0-1.3); Monocytes % (auto) 3.6 % (0.0-12.0); Neutrophils # (auto) 9.3 10 ^3/uL (1.6-8.6); Neutrophils % (auto) 88.2 % (37.0-80.0); Platelet Count (auto) 172 10^3/uL (140-450); Red Blood Cells 4.44 10^6/uL (4.0-5.20); Red Cell Distribution Width 14.1 % (11.8-14.3); White Blood Cell 10.6 10^3/uL (4.4-10.8)
[2024-12-17 08:18] LABS: Albumin 4.1 g/dL (3.2-4.8); Alkaline Phosphatase 70 U/L (46-116); Anion Gap 11 (5-15); Aspartate Aminotransferase 29 U/L (13-40); BUN/Creatinine Ratio 20.9 (10.0-20.0); Bilirubin, Total 0.5 mg/dL (0.2-1.0); Blood Urea Nitrogen 18 mg/dL (9-23); Calcium 9.6 mg/dL (8.7-10.4); Potassium 4.5 mmol/L (3.5-5.1); Sodium 138 mmol/L (136-145); Total Protein 6.6 g/dL (5.7-8.2)
[2024-12-17 08:19] LABS: Alanine Aminotransferase 51 U/L (7-40); Carbon Dioxide 20 mmol/L (20-31); Chloride 107 mmol/L (98-107); Glucose 209 mg/dL (74-106)
--- NOTE | 2024-12-17 10:20 | DVHPN2 ---
Progress Note - Dictate Date Seen: Dec 17, 2024 Has the PT tested + for MRSA If YES, has PT been informed?: No Medical Necessity Reason Pt with a Central, PICC or Fol: No vital signs Vital Sign Date Time Temp Pulse Resp B/P (MAP) Pulse Ox O2 Delivery O2 Flow Rate FiO2 12/17/24 09:00 97.7 90 20 116/79 (91) 93 97.7 12/17/24 08:00 Room Air* 0 21 Total Intake and Output 12/16/24 12/16/24 12/17/24 15:00 23:00 07:00 Intake Total 440 ml 960 ml 500 ml Balance 440 ml 960 ml 500 ml medications Current Medications Medications Dose Ordered Sig/Mirian Route Start Time Stop Time Status Last Admin Dose Admin Hydralazine HCl 5 mg Q6H PRN IV 12/14/24 15:30 Sodium Chloride 10 ml Q8HR IV 12/14/24 22:00 12/17/24 06:11 10 ML Docusate Sodium 100 mg BIDPRN PRN PO 12/14/24 15:30 Acetaminophen 650 mg Q6HP PRN PO 12/14/24 15:30 12/16/24 09:10 650 MG Acetaminophen/ Hydrocodone Bitart 1 tab Q4HP PRN PO 12/14/24 15:30 12/17/24 05:25 1 TAB Ondansetron HCl 4 mg Q4HP PRN IV 12/14/24 15:30 Pantoprazole Sodium 40 mg DAILY IV 12/15/24 10:00 12/17/24 08:58 40 MG Albuterol 2.5 mg Q6H NEB 12/15/24 12:00 12/17/24 06:38 2.5 MG Ipratropium [place] 0.5 mg Q6H NEB 12/15/24 12:00 12/17/24 06:38 0.5 MG Methylprednisolone Sodium Succinate 40 mg Q8HR IV 12/16/24 14:00 12/17/24 06:12 40 MG laboratory and microbiology Laboratory Tests 12/17/24 06:14 Test 12/17/24 06:14 Range/Units Serum Glucose 209 H 74-106 mg/dL Assessment/Plan acute copd emphysema right lung nodule s/p lung bx dyspnea events none awaiting bx results (lung nodule) management plan 02 as needed home 02 eval prior to dc steroids alb/atrovent bronchodilators pain control inc spirometry gi and dvt proph full code Dietary Evaluation Review Comments: 1) Encourage optimal PO intake 2) Refer to outpatient RD for weight management 3) Follow-up with oncology and pulmonology 4) Continue to monitor I&O, labs, and skin integrity Expected Outcomes/Goals: 1) appetite and labs to advance 2) f/u in 3-5 days Plan discussed with: Other (rn) JADA QUIÑONEZ MD Dec 17, 2024 10:20
--- NOTE | 2024-12-17 10:29 | DVHPN2 ---
Reviewed: Care Plan, H&P, Labs, Medications, Previous Orders, Radiology Changes from previous H/P or p: No Changes Objective Vitals Vital Signs Date Time Temp Pulse Resp B/P (MAP) Pulse Ox O2 Delivery O2 Flow Rate FiO2 12/17/24 09:00 97.7 90 20 116/79 (91) 93 97.7 12/17/24 08:00 Room Air* 0 21 Intake/Output Intake and Output 12/17/24 07:00 Intake Total 1900 ml Balance 1900 ml Intake Oral 1900 ml # Voids 8 Medications Current Medications Medications Dose Ordered Sig/Mirian Route Start Time Stop Time Status Last Admin Dose Admin Hydralazine HCl 5 mg Q6H PRN IV 12/14/24 15:30 Sodium Chloride 10 ml Q8HR IV 12/14/24 22:00 12/17/24 06:11 10 ML Docusate Sodium 100 mg BIDPRN PRN PO 12/14/24 15:30 Acetaminophen 650 mg Q6HP PRN PO 12/14/24 15:30 12/16/24 09:10 650 MG Acetaminophen/ Hydrocodone Bitart 1 tab Q4HP PRN PO 12/14/24 15:30 12/17/24 05:25 1 TAB Ondansetron HCl 4 mg Q4HP PRN IV 12/14/24 15:30 Pantoprazole Sodium 40 mg DAILY IV 12/15/24 10:00 12/17/24 08:58 40 MG Albuterol 2.5 mg Q6H NEB 12/15/24 12:00 12/17/24 06:38 2.5 MG Ipratropium [place] 0.5 mg Q6H NEB 12/15/24 12:00 12/17/24 06:38 0.5 MG Methylprednisolone Sodium Succinate 40 mg Q8HR IV 12/16/24 14:00 12/17/24 06:12 40 MG Laboratory Results Laboratory Tests 12/17/24 06:14 Chemistry Test 12/17/24 06:14 Albumin 4.1 g/dL (3.2-4.8) Calcium Level 9.6 mg/dL (8.7-10.4) Total Protein 6.6 g/dL (5.7-8.2) LFT Test 12/17/24 06:14 Alanine Aminotransferase (ALT) 51 U/L (7-40) H Alkaline Phosphatase 70 U/L (46-116) Aspartate Amino Transferase (AST) 29 U/L (13-40) Total Bilirubin 0.5 mg/dL (0.2-1.0) Labs and/or images reviewed: Labs reviewed by me, Image(s) reviewed by me Assessment/Plan Assessment/Plan Acute respiratory failure Right upper lobe nodule status post biopsy by radiologist 12-15-24, biopsy report pending, pulmonary consult by Dr. Michelle appreciated Hypertension History of hep C History of cholecystectomy Polyps in the urinary bladder, scheduled for surgery by Urology Dr. Capellan who ordered chest x-ray and right lung nodule was found incidentally History of smoking for more than 40 years quit two months back Check biopsy report on Wednesday Plan discussed with: Patient Date of Service: Dec 17, 2024 Billing Provider: MARIANNE PACHECO MD Common Visit Codes: [id number] INP/OBS CARE(HIGH) MARIANNE PACHECO MD Dec 17, 2024 10:29
[2024-12-18] VITALS (17 sets, daily range): BP systolic 97–124; BP diastolic 57–79; PULSE 63–84; RESP 16–20; TEMP 97.7–98.4; O2SAT 92–99
[2024-12-18 08:31] LABS: Basophils # (auto) 0 10 ^3/uL (0-0.2); Basophils % (auto) 0.1 % (0.0-2.0); Eosinophils # (auto) 0 10 ^3/uL (0-0.8); Hematocrit 40.8 % (36.0-46.0); Hemoglobin 13.5 g/dL (12.2-16.2); Lymphocytes # (auto) 1.1 10 ^3/uL (0.4-5.4); Lymphocytes % (auto) 8.5 % (10.0-50.0); Mean Corpuscular Hemoglobin 30.5 pg (28.0-32.0); Mean Corpuscular Hgb Conc. 33.2 g/dL (32.0-36.0); Mean Corpuscular Volume 91.8 fL (80.0-100.0); Monocytes # (auto) 0.6 10 ^3/uL (0-1.3); Monocytes % (auto) 5.2 % (0.0-12.0); Neutrophils # (auto) 10.7 10 ^3/uL (1.6-8.6); Neutrophils % (auto) 86.2 % (37.0-80.0); Nucleated Red Blood Cells % 0.1 %; Platelet Count (auto) 173 10^3/uL (140-450); Red Blood Cells 4.44 10^6/uL (4.0-5.20); Red Cell Distribution Width 14.3 % (11.8-14.3); White Blood Cell 12.4 10^3/uL (4.4-10.8)
[2024-12-18 08:49] LABS: Albumin 4.3 g/dL (3.2-4.8); Alkaline Phosphatase 72 U/L (46-116); Anion Gap 11 (5-15); Aspartate Aminotransferase 23 U/L (13-40); BUN/Creatinine Ratio 26.7 (10.0-20.0); Carbon Dioxide 22 mmol/L (20-31); Potassium 4.2 mmol/L (3.5-5.1); Sodium 141 mmol/L (136-145); Total Protein 6.7 g/dL (5.7-8.2)
[2024-12-18 08:50] LABS: Bilirubin, Total 0.4 mg/dL (0.2-1.0)
[2024-12-18 08:51] LABS: Alanine Aminotransferase 46 U/L (7-40); Blood Urea Nitrogen 23 mg/dL (9-23); Chloride 108 mmol/L (98-107); Glucose 167 mg/dL (74-106)
--- NOTE | 2024-12-18 09:48 | DVHPN2 ---
Reviewed: Care Plan, H&P, Labs, Medications, Previous Orders, Radiology Changes from previous H/P or p: No Changes Objective Vitals Vital Signs Date Time Temp Pulse Resp B/P (MAP) Pulse Ox O2 Delivery O2 Flow Rate FiO2 12/18/24 08:20 73 20 92 Room Air* 0 21 12/18/24 05:00 97.7 115/70 (85) 97.7 Intake/Output Intake and Output 12/18/24 07:00 Intake Total 1830 ml Balance 1830 ml Intake Oral 1830 ml # Voids 6 # Bowel Movements 2 Medications Current Medications Medications Dose Ordered Sig/Mirian Route Start Time Stop Time Status Last Admin Dose Admin Hydralazine HCl 5 mg Q6H PRN IV 12/14/24 15:30 Sodium Chloride 10 ml Q8HR IV 12/14/24 22:00 12/18/24 05:58 10 ML Docusate Sodium 100 mg BIDPRN PRN PO 12/14/24 15:30 Acetaminophen 650 mg Q6HP PRN PO 12/14/24 15:30 12/16/24 09:10 650 MG Acetaminophen/ Hydrocodone Bitart 1 tab Q4HP PRN PO 12/14/24 15:30 12/18/24 08:14 1 TAB Ondansetron HCl 4 mg Q4HP PRN IV 12/14/24 15:30 Pantoprazole Sodium 40 mg DAILY IV 12/15/24 10:00 12/18/24 09:28 40 MG Albuterol 2.5 mg Q6H NEB 12/15/24 12:00 12/18/24 05:53 2.5 MG Ipratropium [place] 0.5 mg Q6H NEB 12/15/24 12:00 12/18/24 05:53 0.5 MG Methylprednisolone Sodium Succinate 40 mg Q8HR IV 12/16/24 14:00 12/18/24 05:58 40 MG Laboratory Results Laboratory Tests 12/18/24 07:15 Chemistry Test 12/18/24 07:15 Albumin 4.3 g/dL (3.2-4.8) Calcium Level 10.0 mg/dL (8.7-10.4) Total Protein 6.7 g/dL (5.7-8.2) LFT Test 12/18/24 07:15 Alanine Aminotransferase (ALT) 46 U/L (7-40) H Alkaline Phosphatase 72 U/L (46-116) Aspartate Amino Transferase (AST) 23 U/L (13-40) Total Bilirubin 0.4 mg/dL (0.2-1.0) Labs and/or images reviewed: Labs reviewed by me, Image(s) reviewed by me Assessment/Plan Assessment/Plan Acute respiratory failure Right upper lobe nodule status post biopsy by radiologist 4-25-25, biopsy report pending, pulmonary consult by Dr. Michelle appreciated Hypertension History of hep C History of cholecystectomy Polyps in the urinary bladder, scheduled for surgery by Urology Dr. Capellan who ordered chest x-ray and right lung nodule was found incidentally History of smoking for more than 40 years quit two months back Awaiting biopsy report Plan discussed with: Patient Date of Service: Dec 18, 2024 Billing Provider: MARIANNE PACHECO MD Common Visit Codes: [id number] INP/OBS CARE(HIGH) MARIANNE PACHECO MD Dec 18, 2024 09:48
--- NOTE | 2024-12-18 12:26 | DVHPN2 ---
Progress Note - Dictate Date Seen: Dec 18, 2024 Has the PT tested + for MRSA If YES, has PT been informed?: No Medical Necessity Reason Pt with a Central, PICC or Fol: No vital signs Vital Sign Date Time Temp Pulse Resp B/P (MAP) Pulse Ox O2 Delivery O2 Flow Rate FiO2 12/18/24 11:30 65 16 98 12/18/24 11:24 Room Air 0.0 12/18/24 11:24 21 12/18/24 09:00 98.4 111/72 (85) 98.4 Total Intake and Output 12/17/24 12/17/24 12/18/24 15:00 23:00 07:00 Intake Total 360 ml 920 ml 550 ml Balance 360 ml 920 ml 550 ml medications Current Medications Medications Dose Ordered Sig/Mirian Route Start Time Stop Time Status Last Admin Dose Admin Hydralazine HCl 5 mg Q6H PRN IV 12/14/24 15:30 Sodium Chloride 10 ml Q8HR IV 12/14/24 22:00 12/18/24 05:58 10 ML Docusate Sodium 100 mg BIDPRN PRN PO 12/14/24 15:30 Acetaminophen 650 mg Q6HP PRN PO 12/14/24 15:30 12/16/24 09:10 650 MG Acetaminophen/ Hydrocodone Bitart 1 tab Q4HP PRN PO 12/14/24 15:30 12/18/24 08:14 1 TAB Ondansetron HCl 4 mg Q4HP PRN IV 12/14/24 15:30 Pantoprazole Sodium 40 mg DAILY IV 12/15/24 10:00 12/18/24 09:28 40 MG Albuterol 2.5 mg Q6H NEB 12/15/24 12:00 12/18/24 11:24 2.5 MG Ipratropium [place] 0.5 mg Q6H NEB 12/15/24 12:00 12/18/24 11:24 0.5 MG Methylprednisolone Sodium Succinate 40 mg Q8HR IV 12/16/24 14:00 12/18/24 05:58 40 MG laboratory and microbiology Laboratory Tests 12/18/24 07:15 Test 12/18/24 07:15 Range/Units Serum Glucose 167 H 74-106 mg/dL Assessment/Plan acute copd emphysema right lung nodule s/p lung bx dyspnea events none awaiting bx results (lung nodule) management plan 02 as needed home 02 eval prior to dc steroids alb/atrovent bronchodilators pain control inc spirometry gi and dvt proph full code Dietary Evaluation Review Comments: 1) Encourage optimal PO intake 2) Refer to outpatient RD for weight management 3) Follow-up with oncology and pulmonology 4) Continue to monitor I&O, labs, and skin integrity Expected Outcomes/Goals: 1) appetite and labs to advance 2) f/u in 3-5 days Plan discussed with: Patient JADA QUIÑONEZ MD Dec 18, 2024 12:26
[2024-12-19] VITALS (16 sets, daily range): BP systolic 98–120; BP diastolic 50–82; PULSE 61–93; RESP 16–20; TEMP 97.9–98.4; O2SAT 93–100
[2024-12-19 08:14] LABS: Hematocrit 40.8 % (36.0-46.0); Hemoglobin 13.7 g/dL (12.2-16.2); Mean Corpuscular Hemoglobin 30.9 pg (28.0-32.0); Mean Corpuscular Hgb Conc. 33.7 g/dL (32.0-36.0); Mean Corpuscular Volume 91.8 fL (80.0-100.0); Platelet Count (auto) 166 10^3/uL (140-450); Red Blood Cells 4.44 10^6/uL (4.0-5.20); Red Cell Distribution Width 14.3 % (11.8-14.3); White Blood Cell 10.7 10^3/uL (4.4-10.8)
[2024-12-19 08:21] LABS: Band Neutrophils % (manual) 0; Basophils % (manual) 0 (0.0-2.0); Blast Cells 0; Eosinophils % (manual) 0 (0-7); Metamyelocytes % 0; Myelocytes % 0; Promyelocytes % 0; Reactive Lymphocytes 0
--- NOTE | 2024-12-19 08:45 | DVHPN2 ---
Reviewed: Care Plan, H&P, Labs, Medications, Previous Orders, Radiology Changes from previous H/P or p: No Changes Objective Vitals Vital Signs Date Time Temp Pulse Resp B/P (MAP) Pulse Ox O2 Delivery O2 Flow Rate FiO2 12/19/24 06:03 61 18 99 12/19/24 05:58 Nasal Cannula* 2 28 12/19/24 05:00 97.9 107/53 (71) 97.9 Intake/Output Intake and Output 12/19/24 07:00 Intake Total 1600 ml Balance 1600 ml Intake Oral 1600 ml # Voids 6 Medications Current Medications Medications Dose Ordered Sig/Mirian Route Start Time Stop Time Status Last Admin Dose Admin Hydralazine HCl 5 mg Q6H PRN IV 12/14/24 15:30 Sodium Chloride 10 ml Q8HR IV 12/14/24 22:00 12/19/24 05:52 10 ML Docusate Sodium 100 mg BIDPRN PRN PO 12/14/24 15:30 Acetaminophen 650 mg Q6HP PRN PO 12/14/24 15:30 12/16/24 09:10 650 MG Acetaminophen/ Hydrocodone Bitart 1 tab Q4HP PRN PO 12/14/24 15:30 12/19/24 00:29 1 TAB Ondansetron HCl 4 mg Q4HP PRN IV 12/14/24 15:30 Pantoprazole Sodium 40 mg DAILY IV 12/15/24 10:00 12/18/24 09:28 40 MG Albuterol 2.5 mg Q6H NEB 12/15/24 12:00 12/19/24 05:58 2.5 MG Ipratropium [place] 0.5 mg Q6H NEB 12/15/24 12:00 12/19/24 05:58 0.5 MG Methylprednisolone Sodium Succinate 40 mg Q8HR IV 12/16/24 14:00 12/19/24 05:52 40 MG Laboratory Results Laboratory Tests 12/19/24 07:29 Chemistry Test 12/19/24 07:29 Albumin Pending Calcium Level Pending Total Protein Pending LFT Test 12/19/24 07:29 Alanine Aminotransferase (ALT) Pending Alkaline Phosphatase Pending Aspartate Amino Transferase (AST) Pending Total Bilirubin Pending Labs and/or images reviewed: Labs reviewed by me, Image(s) reviewed by me Assessment/Plan Assessment/Plan Acute respiratory failure: Oxygen by nasal cannula Right upper lobe nodule status post biopsy by radiologist 12-15-24, biopsy report pending, pulmonary consult by Dr. Michelle appreciated Hypertension History of hep C History of cholecystectomy Polyps in the urinary bladder, scheduled for surgery by Urology Dr. Capellan who ordered chest x-ray and right lung nodule was found incidentally History of smoking for more than 40 years quit two months back Awaiting biopsy report Plan discussed with: Patient Date of Service: Dec 19, 2024 Billing Provider: MARIANNE PACHECO MD Common Visit Codes: [id number] INP/OBS CARE(HIGH) MARIANNE PACHECO MD Dec 19, 2024 08:45
[2024-12-19 08:47] LABS: Alanine Aminotransferase 39 U/L (7-40); Albumin 4.1 g/dL (3.2-4.8); Alkaline Phosphatase 66 U/L (46-116); Anion Gap 9 (5-15); Aspartate Aminotransferase 20 U/L (13-40); BUN/Creatinine Ratio 28.6 (10.0-20.0); Calcium 9.7 mg/dL (8.7-10.4); Carbon Dioxide 25 mmol/L (20-31); Chloride 107 mmol/L (98-107); Potassium 4.5 mmol/L (3.5-5.1); Sodium 141 mmol/L (136-145); Total Protein 6.6 g/dL (5.7-8.2)
[2024-12-19 08:48] LABS: Bilirubin, Total 0.4 mg/dL (0.2-1.0)
[2024-12-19 08:55] LABS: Blood Urea Nitrogen 24 mg/dL (9-23); Glucose 138 mg/dL (74-106)
[2024-12-19 09:01] LABS: Lymphocytes % (manual) 8 (10.0-50.0); Monocytes % (manual) 11 (0-12); Platelet Estimate Adequate
--- NOTE | 2024-12-19 13:51 | DVHPN2 ---
Progress Note - Dictate Date Seen: Dec 19, 2024 Has the PT tested + for MRSA If YES, has PT been informed?: No Medical Necessity Reason Pt with a Central, PICC or Fol: No vital signs Vital Sign Date Time Temp Pulse Resp B/P (MAP) Pulse Ox O2 Delivery O2 Flow Rate FiO2 12/19/24 10:27 68 18 99 12/19/24 10:18 Room Air* 0 21 12/19/24 08:59 97.9 115/82 (93) 97.9 Total Intake and Output 12/18/24 12/18/24 12/19/24 15:00 23:00 07:00 Intake Total 1200 ml 400 ml Balance 1200 ml 400 ml medications Current Medications Medications Dose Ordered Sig/Mirian Route Start Time Stop Time Status Last Admin Dose Admin Hydralazine HCl 5 mg Q6H PRN IV 12/14/24 15:30 Sodium Chloride 10 ml Q8HR IV 12/14/24 22:00 12/19/24 05:52 10 ML Docusate Sodium 100 mg BIDPRN PRN PO 12/14/24 15:30 Acetaminophen 650 mg Q6HP PRN PO 12/14/24 15:30 12/16/24 09:10 650 MG Acetaminophen/ Hydrocodone Bitart 1 tab Q4HP PRN PO 12/14/24 15:30 12/19/24 10:23 1 TAB Ondansetron HCl 4 mg Q4HP PRN IV 12/14/24 15:30 Pantoprazole Sodium 40 mg DAILY IV 12/15/24 10:00 12/19/24 10:16 40 MG Albuterol 2.5 mg Q6H NEB 12/15/24 12:00 12/19/24 10:18 2.5 MG Ipratropium [place] 0.5 mg Q6H NEB 12/15/24 12:00 12/19/24 10:18 0.5 MG Methylprednisolone Sodium Succinate 40 mg Q8HR IV 12/16/24 14:00 12/19/24 13:10 40 MG laboratory and microbiology Laboratory Tests 12/19/24 07:29 Test 12/19/24 07:29 Range/Units Serum Glucose 138 H 74-106 mg/dL Assessment/Plan acute copd emphysema right lung nodule s/p lung bx dyspnea events none awaiting bx results (lung nodule) management plan 02 as needed home 02 eval prior to dc steroids alb/atrovent bronchodilators pain control inc spirometry gi and dvt proph full code Dietary Evaluation Review Comments: 1) Encourage optimal PO intake 2) Refer to outpatient RD for weight management 3) Follow-up with oncology and pulmonology 4) Continue to monitor I&O, labs, and skin integrity Expected Outcomes/Goals: 1) appetite and labs to advance 2) f/u in 3-5 days Plan discussed with: Patient, Other (rn) JADA QUIÑONEZ MD Dec 19, 2024 13:51
[2024-12-20] VITALS (9 sets, daily range): BP systolic 114–125; BP diastolic 62–80; PULSE 64–81; RESP 18–20; TEMP 97.8–98.5; O2SAT 94–99
[2024-12-20] MEDS ORDERED: HYDR-4902 PO (08:28)
[2024-12-20] MEDS ORDERED: METH4PAK PO (08:28)
[2024-12-20] MEDS ORDERED: ALBUAER3 IN (08:28)
--- NOTE | 2024-12-20 08:32 | DVHPN2 ---
Reviewed: Care Plan, H&P, Labs, Medications, Previous Orders, Radiology Changes from previous H/P or p: No Changes Objective Vitals Vital Signs Date Time Temp Pulse Resp B/P (MAP) Pulse Ox O2 Delivery O2 Flow Rate FiO2 12/20/24 06:04 64 18 99 12/20/24 05:58 Room Air* 0 21 12/20/24 05:00 98.0 125/80 (95) 98.0 Intake/Output Intake and Output 12/20/24 07:00 Intake Total 3160 ml Balance 3160 ml Intake Oral 3160 ml # Voids 7 # Bowel Movements 2 Medications Current Medications Medications Dose Ordered Sig/Mirian Route Start Time Stop Time Status Last Admin Dose Admin Hydralazine HCl 5 mg Q6H PRN IV 12/14/24 15:30 Sodium Chloride 10 ml Q8HR IV 12/14/24 22:00 12/20/24 05:31 10 ML Docusate Sodium 100 mg BIDPRN PRN PO 12/14/24 15:30 Acetaminophen 650 mg Q6HP PRN PO 12/14/24 15:30 12/16/24 09:10 650 MG Acetaminophen/ Hydrocodone Bitart 1 tab Q4HP PRN PO 12/14/24 15:30 12/20/24 00:55 1 TAB Ondansetron HCl 4 mg Q4HP PRN IV 12/14/24 15:30 Pantoprazole Sodium 40 mg DAILY IV 12/15/24 10:00 12/19/24 10:16 40 MG Albuterol 2.5 mg Q6H NEB 12/15/24 12:00 12/20/24 05:57 2.5 MG Ipratropium [place] 0.5 mg Q6H NEB 12/15/24 12:00 12/20/24 05:57 0.5 MG Methylprednisolone Sodium Succinate 40 mg Q8HR IV 12/16/24 14:00 12/20/24 05:31 40 MG Laboratory Results Laboratory Tests 12/19/24 07:29 Labs and/or images reviewed: Labs reviewed by me, Image(s) reviewed by me Assessment/Plan Assessment/Plan Acute respiratory failure: Oxygen by nasal cannula Right upper lobe nodule status post biopsy by radiologist 12-15-24, 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 Michelle appreciated, patient does not want referral to local oncologist. Hypertension History of hep C History of cholecystectomy Polyps in the urinary bladder, scheduled for surgery by Urology Dr. Capellan who ordered chest x-ray and right lung nodule was found incidentally History of smoking for more than 40 years quit two months back Patient on room air and asymptomatic with stable vital signs at the time of discharge Plan discussed with: Patient Date of Service: Dec 20, 2024 Billing Provider: MARIANNE PACHECO MD Common Visit Codes: [id number] INP/OBS CARE(HIGH) MARIANNE PACHECO MD Dec 20, 2024 08:32
--- NOTE | 2024-12-20 08:37 | DVHDS2 ---
Discharge Summary Date of Admission Dec 14, 2024 at 15:26 Date of Discharge: Dec 20, 2024 Admitting Diagnosis Lung nodule Wounds: Biopsy lung nodule Labs/Diagnostic Data: Laboratory Results Test 12/19/24 07:29 12/18/24 07:15 12/15/24 07:15 12/14/24 11:32 White Blood Count 10.7 10^3/uL (4.4-10.8) Red Blood Count 4.44 10^6/uL (4.0-5.20) Hemoglobin 13.7 g/dL (12.2-16.2) Hematocrit 40.8 % (36.0-46.0) Mean Corpuscular Volume 91.8 fL (80.0-100.0) Mean Corpuscular Hemoglobin 30.9 pg (28.0-32.0) Mean Corpuscular Hemoglobin Concent 33.7 g/dL (32.0-36.0) Red Cell Distribution Width 14.3 % (11.8-14.3) Platelet Count 166 10^3/uL (140-450) Mean Platelet Volume 9.3 fL (6.9-10.8) Neutrophils (%) (Auto) % (37.0-80.0) Lymphocytes (%) (Auto) % (10.0-50.0) Monocytes (%) (Auto) % (0.0-12.0) Basophils (%) (Auto) % (0.0-2.0) Neutrophils # (Auto) 10 ^3/uL (1.6-8.6) Lymphocytes # (Auto) 10 ^3/uL (0.4-5.4) Monocytes # (Auto) 10 ^3/uL (0-1.3) Differential Total Cells Counted 100.0 (100) Neutrophils % (Manual) 81 (37.0-80.0) Band Neutrophils % (Manual) 0 Lymphocytes % (Manual) 8 (10.0-50.0) Monocytes % (Manual) 11 (0-12) Eosinophils % (Manual) 0 (0-7) Basophils % (Manual) 0 (0.0-2.0) Metamyelocytes % (manual) 0 Myelocytes % (Manual) 0 Promyelocytes % (Manual) 0 Blast Cells % (Manual) 0 Reactive Lymphocytes 0 Platelet Estimate Adequate Sodium Level 141 mmol/L (136-145) Potassium Level 4.5 mmol/L (3.5-5.1) Chloride Level 107 mmol/L (98-107) Carbon Dioxide Level 25 mmol/L (20-31) Anion Gap 9 (5-15) Blood Urea Nitrogen 24 mg/dL (9-23) Creatinine 0.84 mg/dL (0.550-1.02) Glomerular Filtration Rate Calc 75 mL/min (>90) BUN/Creatinine Ratio 28.6 (10.0-20.0) Serum Glucose 138 mg/dL (74-106) Calcium Level 9.7 mg/dL (8.7-10.4) Total Bilirubin 0.4 mg/dL (0.2-1.0) Aspartate Amino Transferase (AST) 20 U/L (13-40) Alanine Aminotransferase (ALT) 39 U/L (7-40) Alkaline Phosphatase 66 U/L (46-116) Total Protein 6.6 g/dL (5.7-8.2) Albumin 4.1 g/dL (3.2-4.8) Eosinophils (%) (Auto) 0.0 % (0.0-7.0) Eosinophils # (Auto) 0 10 ^3/uL (0-0.8) Basophils # (Auto) 0 10 ^3/uL (0-0.2) Nucleated Red Blood Cells 0.1 % Prothrombin Time 11.4 sec (9.3-11.8) Prothrombin Time INR 1.08 (0.9-1.15) Activated Partial Thromboplast Time 24.6 SEC (24.5-34.5) Troponin I High Sensitivity 4 ng/L (</=34) Test 12/14/24 08:31 Red Blood Cell Morphology Normal D-Dimer, Quantitative 0.44 mg/L FEU (0.0-0.49) B-Type Natriuretic Peptide 75.51 pg/mL (0-100) Other Laboratory Tests 12/19/24 07:29 Brief Hx & Hospital Course: 69-year-old female with a history of more than 40 years of smoking quit two months ago went to the urologist for removal of bladder polyps. Urology Dr. Capellan ordered a chest x-ray found to have lung nodule and admitted to the hospital. The patient underwent biopsy of the lung nodule by the radiologist. Seen by pulmonology Dr. Manriquez, Biopsy report came positive for poorly differentiated adenocarcinoma of the lung. Patient was given a copy of the report and a copy of the report in the chart. I offered the patient to set up outpatient appointment with the oncologist Dr. Orta. But patient advised me that she already spoke to her insurance [facility] and is making arrangement to go to [facility] and does not want referral to local oncologist. At the time of discharge patient is afebrile on room air stable vital signs. Discharged home. Prescription transmitted to the pharmacy Consults/Reason for consult Pulmonology Dr. 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 Michelle appreciated, patient does not want referral to local oncologist. Hypertension History of hep C History of cholecystectomy Polyps in the urinary bladder, scheduled for surgery by Urology Dr. Capellan who ordered chest x-ray and right lung nodule was found incidentally History of smoking for more than 40 years quit two months back Discharge Disposition: Home Discharge Instruct/Medications Diet: Regular Activity: No Restrictions, As Tolerated Follow Up/Referral: Follow up with [facility] through [facility] for your lung cancer as soon as possible Medications: [place] Ventolin MDI Medrol Dosepak Transmitted to pharmacy 35 (Time taken for discharge summary 35 minutes) Discharge Statement: "Patient was advised to return to the ER or call 911 if any headaches, dizziness, shortness of breath, chest pain, abdominal pain, bleeding, fevers, or worsening of medical condition. Patient was counseled about treatment plan, medications, possible side effects, patientverbalized understanding. All questions were answered to the best of my ability. 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 Michelle appreciated, patient does not want referral to local oncologist. Hypertension History of hep C History of cholecystectomy Polyps in the urinary bladder, scheduled for surgery by Urology Dr. Capellan who ordered chest x-ray and right lung nodule was found incidentally History of smoking for more than 40 years quit two months back Date of Service: Dec 20, 2024 Billing Provider: MARIANNE PACHECO MD Common Visit Codes: 22553-RIG/OBS DISCH DAY >30min MARIANNE PACHECO MD Dec 20, 2024 08:37
== END 2024-12-20 11:37 | disposition home or self-care (01) | DRG 180 ==
LOC: ER 07:35 → OVERFLOW 15:26 → CENTRAL 17:40
PROVIDERS: ADMIT Family Medicine; ATTEND Family Medicine
PROC: 0BBK3ZX Excision of Right Lung, Percutaneous Approach, Diagnostic (ICD-10-PCS; principal; 2024-12-15)
DX: C34.91 Malignant neoplasm of unspecified part of right bronchus or lung (principal); J96.00 Acute respiratory failure, unspecified whether with hypoxia or hypercapnia; I10 Essential (primary) hypertension; J43.9 Emphysema, unspecified; R91.1 Solitary pulmonary nodule; B19.20 Unspecified viral hepatitis C without hepatic coma; F17.200 Nicotine dependence, unspecified, uncomplicated; Z90.49 Acquired absence of other specified parts of digestive tract; Z83.3 Family history of diabetes mellitus; Z80.0 Family history of malignant neoplasm of digestive organs; Z85.118 Personal history of other malignant neoplasm of bronchus and lung
CPT/HCPCS: 10005; 36415; 71045; 71250; 71260; 77012; 80053; 83880; 84484; 85007; 85025; 85027; 85379; 85610; 85730; 86850; 86900; 86901; 93005; 94640; G0378; J2003; J2250; J2470; J7042

== ENCOUNTER → 2025-05-24 | Outpatient (CLI) | payer OTHER, MEDICAID ==
[~2025-05-24] MED LIST: ALBUAER3 IN; ALBUTEROL SULF 2.5 MG/0.5ML(0.5%) NEB SOLN ONE; HYDR-4902 PO; METH4PAK PO
== END | disposition home or self-care (01) ==
LOC: RT 15:14
PROVIDERS: ATTEND Internal Medicine Pulmonary Disease
DX: J44.9 Chronic obstructive pulmonary disease, unspecified (principal); R06.00 Dyspnea, unspecified; Z79.899 Other long term (current) drug therapy
CPT/HCPCS: 94060; 94618; 94727; 94729